=== PATIENT | male | born 1950 | race Caucasian/White ===

== ENCOUNTER → 2016-06-16 | Outpatient (CLI) | payer MEDICARE | END | disposition home or self-care (01) | LOC: CFH 09:18 | PROVIDERS: ATTEND Genetic Counselor, MS | DX: Z12.2 Encounter for screening for malignant neoplasm of respiratory organs (principal); I70.0 Atherosclerosis of aorta; J43.2 Centrilobular emphysema; R91.1 Solitary pulmonary nodule; Z87.891 Personal history of nicotine dependence | CPT/HCPCS: 93978; G0297 ==

== ENCOUNTER → 2017-08-15 | Outpatient (CLI) | payer MEDICARE, OTHER | END | disposition home or self-care (01) | LOC: PETCFH 07:30 | PROVIDERS: ATTEND Genetic Counselor, MS | DX: R91.8 Other nonspecific abnormal finding of lung field (principal) | CPT/HCPCS: 78815; A9552 ==

== ENCOUNTER → 2018-02-13 | Outpatient (CLI) | payer MEDICARE, OTHER | END | disposition home or self-care (01) | LOC: CFH 13:44 | PROVIDERS: ATTEND Nurse Practitioner | DX: R91.1 Solitary pulmonary nodule (principal); R91.8 Other nonspecific abnormal finding of lung field | CPT/HCPCS: 71250 ==

== ENCOUNTER 2019-01-28 09:04 | Outpatient (CLI) | payer MEDICARE, OTHER | END 2019-01-28 23:59 | disposition home or self-care (01) | LOC: CFH 09:04 | PROVIDERS: ATTEND Nurse Practitioner | DX: R91.8 Other nonspecific abnormal finding of lung field (principal); J43.9 Emphysema, unspecified; Z87.891 Personal history of nicotine dependence | CPT/HCPCS: 71250 ==

== ENCOUNTER → 2019-04-28 | Outpatient (CLI) | payer MEDICARE, OTHER | END | disposition home or self-care (01) | LOC: CFH 12:07 | PROVIDERS: ATTEND Nurse Practitioner | DX: R91.8 Other nonspecific abnormal finding of lung field (principal); J44.9 Chronic obstructive pulmonary disease, unspecified; J98.4 Other disorders of lung; M85.80 Other specified disorders of bone density and structure, unspecified site; M47.814 Spondylosis without myelopathy or radiculopathy, thoracic region | CPT/HCPCS: 71250 ==

== ENCOUNTER 2019-07-21 09:39 | Emergency (ER) | payer MEDICARE, OTHER ==
[~2019-07-21] VITALS: Ht 177.8 cm; Wt 62.1 kg
[~2019-07-21 09:39] MED LIST: [UNRECOGNIZED DRUG - CODE] PO
[2019-07-21] MEDS ORDERED: NEOSPORIN OINT. PKT 1 PACKET ONE (10:08)
--- NOTE | 2019-07-21 10:22 | NUR ---
A total of three stiches removed from 2 seperate lacerations to right arm per provider order wounds cleansed with saline then dressed piv then placed for iv abx Penicillin allergy removed from allergy list as patient does not have penicillin allergy (currently taking augmentin)
[2019-07-21] MEDS ORDERED: AMPICILLIN/SULBACTAM 3 GM in SODIUM CHLORIDE 0.9% 100 ML IV ONE (10:30)
[2019-07-21] MEDS ORDERED: NEOSPORIN OINT. PKT 1 PACKET TP ONE (10:30)
[2019-07-21 10:45] VITALS: BP 114/62
--- NOTE | 2019-07-21 10:47 | NUR ---
redness on arm marked w skin marker, education provided. as
== END 2019-07-21 11:24 | disposition home or self-care (01) ==
LOC: ED 11:13
DX: S51.851A Open bite of right forearm, initial encounter (principal); L03.113 Cellulitis of right upper limb; J44.9 Chronic obstructive pulmonary disease, unspecified; Z99.81 Dependence on supplemental oxygen; W54.0XXA Bitten by dog, initial encounter; Y93.89 Activity, other specified; Y92.89 Other specified places as the place of occurrence of the external cause; Y99.8 Other external cause status
CPT/HCPCS: 96365; 99284; J0295

== ENCOUNTER 2019-07-23 10:32 | Emergency (ER) | payer MEDICARE, OTHER ==
[~2019-07-23] VITALS: Ht 177.8 cm; Wt 65.0 kg
[~2019-07-23 10:32] MED LIST changes: +[UNRECOGNIZED DRUG - CODE] PO; -[UNRECOGNIZED DRUG - CODE] PO
[2019-07-23 10:40] VITALS: BP 125/78
--- NOTE | 2019-07-23 11:48 | NUR ---
Patient given discharge instructions and they have confirmed that they understand the instructions. Patient ambulatory with steady gait.
== END 2019-07-23 12:04 | disposition home or self-care (01) ==
LOC: ED 11:53
DX: S61.511D Laceration without foreign body of right wrist, subsequent encounter (principal); J44.9 Chronic obstructive pulmonary disease, unspecified; X58.XXXD Exposure to other specified factors, subsequent encounter
CPT/HCPCS: 99281

== ENCOUNTER 2020-11-16 10:11 | Outpatient (CLI) | payer MEDICARE, OTHER | END 2020-11-16 23:59 | disposition home or self-care (01) | LOC: CFH 10:11 | PROVIDERS: ATTEND Internal Medicine | DX: R91.8 Other nonspecific abnormal finding of lung field (principal); J43.9 Emphysema, unspecified | CPT/HCPCS: 71250 ==